=== PATIENT | male | born 1940 | race Caucasian/White ===

== ENCOUNTER 2017-04-07 08:26 | Outpatient (CLI) | payer OTHER ==
[~2017-04-07 08:26] MED LIST: AVALIDE 300-251 TAB; AVANDAMET 4 MG/1 TAB PO; CADUET 10 MG/101 TAB PO; CRESTOR20 MG; GLIPIZIDE10 MG PO; HUMALOG MIX 50/53 ML; METOPROLOL SUCC25 MG; NORVASC5 MG; PLAVIX75 MG; PRANDIN PO; ZESTRIL20 MG
== END 2017-04-07 08:31 | disposition home or self-care (01) ==
LOC: LAB 08:26
DX: N40.0 Benign prostatic hyperplasia without lower urinary tract symptoms (principal); R97.20 Elevated prostate specific antigen [PSA]; R31.9 Hematuria, unspecified; E11.9 Type 2 diabetes mellitus without complications

== ENCOUNTER 2017-04-26 12:01 | Outpatient (CLI) | payer OTHER | END 2017-04-26 15:14 | disposition home or self-care (01) | LOC: SONOGRAMA 12:01 → MAMO-SONO 12:45 → SONOGRAMA 15:14 | DX: N40.0 Benign prostatic hyperplasia without lower urinary tract symptoms (principal); R97.20 Elevated prostate specific antigen [PSA]; R31.9 Hematuria, unspecified ==

== ENCOUNTER 2017-05-11 09:41 | Outpatient (CLI) | payer OTHER | END 2017-05-11 09:51 | disposition home or self-care (01) | LOC: LAB 09:41 | DX: N40.0 Benign prostatic hyperplasia without lower urinary tract symptoms (principal); R31.9 Hematuria, unspecified; R97.20 Elevated prostate specific antigen [PSA]; E11.9 Type 2 diabetes mellitus without complications ==

== ENCOUNTER 2017-05-27 08:25 | Outpatient (CLI) | payer OTHER | END 2017-05-27 08:33 | disposition home or self-care (01) | LOC: LAB 08:25 | DX: E11.9 Type 2 diabetes mellitus without complications (principal) ==

== ENCOUNTER 2017-06-01 09:24 | Outpatient (CLI) | payer OTHER | END 2017-06-01 09:39 | disposition home or self-care (01) | LOC: LAB 09:24 | DX: E78.2 Mixed hyperlipidemia (principal); E11.9 Type 2 diabetes mellitus without complications; D84.8 Other specified immunodeficiencies ==

== ENCOUNTER 2017-07-21 08:26 | Outpatient (CLI) | payer OTHER | END 2017-07-21 08:29 | disposition home or self-care (01) | LOC: LAB 08:26 | DX: E11.9 Type 2 diabetes mellitus without complications (principal) ==

== ENCOUNTER 2017-09-06 08:16 | Outpatient (CLI) | payer OTHER | END 2017-09-06 08:20 | disposition home or self-care (01) | LOC: LAB 08:16 | DX: E11.39 Type 2 diabetes mellitus with other diabetic ophthalmic complication (principal); D68.8 Other specified coagulation defects; E03.8 Other specified hypothyroidism; E11.21 Type 2 diabetes mellitus with diabetic nephropathy ==

== ENCOUNTER 2017-09-12 12:02 | Outpatient (CLI) | payer OTHER | END 2017-09-12 12:12 | disposition home or self-care (01) | LOC: SONOGRAMA 12:02 | DX: N13.30 Unspecified hydronephrosis (principal); E03.8 Other specified hypothyroidism; E04.1 Nontoxic single thyroid nodule ==

== ENCOUNTER 2017-10-12 08:07 | Outpatient (CLI) | payer OTHER | END 2017-10-12 08:20 | disposition home or self-care (01) | LOC: LAB 08:07 | DX: E11.65 Type 2 diabetes mellitus with hyperglycemia (principal); E11.21 Type 2 diabetes mellitus with diabetic nephropathy; E78.2 Mixed hyperlipidemia; E03.8 Other specified hypothyroidism; D68.8 Other specified coagulation defects ==

== ENCOUNTER 2017-10-13 08:24 | Outpatient (CLI) | payer OTHER | END 2017-10-13 08:30 | disposition home or self-care (01) | LOC: LAB 08:24 | DX: E11.65 Type 2 diabetes mellitus with hyperglycemia (principal); E11.21 Type 2 diabetes mellitus with diabetic nephropathy; E78.2 Mixed hyperlipidemia; E03.8 Other specified hypothyroidism ==

== ENCOUNTER 2017-12-15 08:23 | Outpatient (CLI) | payer OTHER | END 2017-12-15 08:38 | disposition home or self-care (01) | LOC: LAB 08:23 | DX: E11.21 Type 2 diabetes mellitus with diabetic nephropathy (principal); D68.8 Other specified coagulation defects ==

== ENCOUNTER 2018-02-06 08:31 | Outpatient (CLI) | payer OTHER | END 2018-02-06 09:03 | disposition home or self-care (01) | LOC: LAB 08:31 | DX: E11.65 Type 2 diabetes mellitus with hyperglycemia (principal); N39.0 Urinary tract infection, site not specified; D64.89 Other specified anemias; E11.21 Type 2 diabetes mellitus with diabetic nephropathy; E78.2 Mixed hyperlipidemia; K76.89 Other specified diseases of liver ==

== ENCOUNTER 2018-07-03 07:51 | Outpatient (CLI) | payer OTHER | END 2018-07-03 16:43 | disposition home or self-care (01) | LOC: LAB 07:51 | DX: N40.0 Benign prostatic hyperplasia without lower urinary tract symptoms (principal); R97.20 Elevated prostate specific antigen [PSA]; N30.00 Acute cystitis without hematuria ==

== ENCOUNTER 2018-07-09 07:24 | Outpatient (CLI) | payer OTHER | END 2018-07-09 07:31 | disposition home or self-care (01) | LOC: SONOGRAMA 07:24 → MAMO-SONO 07:45 | DX: N40.0 Benign prostatic hyperplasia without lower urinary tract symptoms (principal); R97.20 Elevated prostate specific antigen [PSA] ==

== ENCOUNTER 2018-07-17 07:56 | Outpatient (CLI) | payer OTHER | END 2018-07-17 08:00 | disposition home or self-care (01) | LOC: LAB 07:56 | DX: E11.65 Type 2 diabetes mellitus with hyperglycemia (principal); E78.00 Pure hypercholesterolemia, unspecified ==

== ENCOUNTER 2018-08-07 07:22 | Outpatient (CLI) | payer OTHER | END 2018-08-07 07:31 | disposition home or self-care (01) | LOC: LAB 07:22 | DX: E11.69 Type 2 diabetes mellitus with other specified complication (principal); E11.21 Type 2 diabetes mellitus with diabetic nephropathy; E03.8 Other specified hypothyroidism; E78.2 Mixed hyperlipidemia; E11.65 Type 2 diabetes mellitus with hyperglycemia ==

== ENCOUNTER 2018-08-07 14:31 | Inpatient (IN) | payer OTHER ==
[~2018-08-07] VITALS: Ht 162.6 cm; Wt 77.1 kg
[2018-08-09] MEDS ORDERED: REPAGLINIDE2 MG (13:09)
== END 2018-08-14 15:54 | disposition home or self-care (01) | DRG 683 ==
LOC: ER 14:31 → MEDJ 22:58 → SEC-K 22:58 → MEDJ 23:43
PROVIDERS: ADMIT Specialist
PROC: BW21ZZZ Computerized Tomography (CT Scan) of Abdomen and Pelvis (ICD-10-PCS; principal; 2018-08-07)
DX: N17.8 Other acute kidney failure (principal); I12.0 Hypertensive chronic kidney disease with stage 5 chronic kidney disease or end stage renal disease; E11.65 Type 2 diabetes mellitus with hyperglycemia; E11.21 Type 2 diabetes mellitus with diabetic nephropathy; N18.5 Chronic kidney disease, stage 5; N40.1 Benign prostatic hyperplasia with lower urinary tract symptoms; E78.49 Other hyperlipidemia; K21.9 Gastro-esophageal reflux disease without esophagitis; K59.09 Other constipation; Z79.4 Long term (current) use of insulin; Z87.442 Personal history of urinary calculi; Z86.73 Personal history of transient ischemic attack (TIA), and cerebral infarction without residual deficits

== ENCOUNTER 2018-08-21 07:32 | Outpatient (CLI) | payer OTHER ==
[~2018-08-21 07:32] MED LIST changes: +REPAGLINIDE2 MG
== END 2018-08-21 16:38 | disposition home or self-care (01) ==
LOC: LAB 07:32
DX: D64.89 Other specified anemias (principal); N39.0 Urinary tract infection, site not specified; E11.65 Type 2 diabetes mellitus with hyperglycemia

== ENCOUNTER → 2018-10-03 07:16 | Outpatient (CLI) | payer OTHER | END | disposition home or self-care (01) | LOC: LAB 07:16 → MAMO-SONO 09:15 | DX: N40.0 Benign prostatic hyperplasia without lower urinary tract symptoms (principal); R97.20 Elevated prostate specific antigen [PSA] ==

== ENCOUNTER 2018-10-03 08:17 | Outpatient (CLI) | payer OTHER | END 2018-10-03 08:25 | disposition home or self-care (01) | LOC: SONOGRAMA 08:17 | DX: N40.0 Benign prostatic hyperplasia without lower urinary tract symptoms (principal); R97.20 Elevated prostate specific antigen [PSA]; R31.1 Benign essential microscopic hematuria ==

== ENCOUNTER 2018-12-05 19:50 | Inpatient (IN) | payer OTHER ==
[~2018-12-05] VITALS: Ht 162.6 cm; Wt 75.7 kg
[2018-12-05] MEDS ORDERED: TOPROL XL100 M1 PO (20:27)
[2018-12-05] MEDS ORDERED: ATACAND4 MG PO (20:29)
[2018-12-05] MEDS ORDERED: TAMS0.4C PO (20:29)
[2018-12-05] MEDS ORDERED: TRULICITY0.75 MG/0. SUBCUTANEO (20:30)
[2018-12-05] MEDS ORDERED: PROSCAR5 MG PO (20:30)
[2018-12-05] MEDS ORDERED: LANTUS SOL100 UNIT/1 SUBCUTANEO (20:30)
--- NOTE | 2018-12-05 20:52 | NUR ---
PACIENTE ALERTA Y ORIENTADO X3, CON BUEN PATRON RESPIRATORIO Y SIGNOS VITALES ESTABLES, PRESENTA BP EN 116/48 MANUAL SE LE CAMBIARON MEDICAMENTOS DE LA PRESION EL LUNES, ESPOSA REFIERE QUE DANG TENIDO BAJA PRESION, LO DANG VISUALIZADO LENTO Y DEBIL. SE COLOCA EN CELIA HASTA SER EVALUADO POR .
--- NOTE | 2018-12-05 21:16 | NUR ---
PTE ALERTA Y ORIENTADO X3, SE LE TAWANA MUESTRAS DE LAB.NRIAJ ORDEN MEDICA BAJO MEDIDAS ASEPTICAS. SE CANALIZA AREA RADHA DE EDEMA Y DE ENROJECIMIENTO. SE LE COLOCA DRIP .9NSS BAJANDO A 100ML/HR. SE EDUCA A PTE/FAMILIAR SOBRE TRATAMIENTO MEDICO.
--- NOTE | 2018-12-05 22:49 | NUR ---
SE RECIBE PTE ALERTA Y ORIENTADO X3 EN UNIDAD DE CRITICO. PTE SE COLOCA EN CELIA #1. PTE SE CONECTA A MONITOR CARDIACO CON OXIMETRIA DE PULSO. PTE SE OBSERVA CON 0.45 BAJANDO A 125ML/HR. SE COLOCA ROCEPHIN 2G APTE EL CUAL TOLERA. SE COLOCA GIBSON BAJANDO A GRAVEDAD A PTE. SE TAWANA MUESTRAS DE LAB UTILIZANDO MEDIDAS ASEPTICAS. SE CULTIVA EN NANCY Y ORINA A PTE. SE NOTIFICA ESTUDIO DE PALCA PORTABLE PENDIENTE A REALIZAR. PTE EN ESPERA DE CONSULTA CON MEDICINA INTERNA. PTE SE CONTINUA MONITORIANDO POR CAMBIOS.
--- NOTE | 2018-12-05 23:24 | NUR ---
SE RECIBE PACIENTE EN LA UNIDAD DE CRITICO ALERTA Y ORIENTADO X3 EN CAMA CON BARANDAS ELEVADAS Y CABEZERA A 30 GRADOS, CONECTADO A MONITOR CARDIACO CON OXIMETRIA DE PULSO. AREA DE CALIZACION PATENTE Y RADHA DE EDEMA O ERITEMA EN BRAZO Y MANO DERECHA BAJANDO 0.45NSS 1000ML A 125ML/HR. TIENE GIBSON A GRAVEDAD DRENANDO ORINA DE COLOR AMARILLO CALRO. NO EDEMA EN EXTREMIDADES, NO DOLOR, DISPNEA. EL PACIENTE NIEGA DOLOR U OTROS SINTOMAS. SE MANTIENE BAJO OBSERVACION POR CAMBIOS.
[2018-12-06] MEDS ORDERED: TRULICITY1.5 MG/0.5 (07:17)
[2018-12-06] MEDS ORDERED: CRESTOR40 MG (07:17)
[2018-12-06] MEDS ORDERED: VITAMINA B12 (07:20)
--- NOTE | 2018-12-06 08:09 | NUR ---
SE RECIBE PACIENTE ALERTA Y ORIENTADO EN CAMAM CON BARANDAS ELEVADAS CONECTADO A MONITOR CARDIACO, SE OBSERVA CON IBF PATENTE RADHA D EDEMA , GIBSON CATHETER CON ORINA AMARILLO SHARATH CON SEDIMENTACION , SE MANTIENENEN OBSERVACION PO RCAMBIOS EN CAICEDO CONDICON. EN CONSULTA CON EL .
[2018-12-06] MEDS ORDERED: VITAMIN B-121000 MCG (16:21)
== END 2018-12-21 18:40 | disposition home or self-care (01) | DRG 682 ==
LOC: ER 19:50 → MEDJ 12-06 10:06 → ICU-2 12-06 10:06 → MEDJ 12-07 19:30
PROVIDERS: ADMIT Specialist
PROC: 4A12X4Z Monitoring of Cardiac Electrical Activity, External Approach (ICD-10-PCS; principal; 2018-12-07)
PROC: B246ZZZ Ultrasonography of Right and Left Heart (ICD-10-PCS; 2018-12-07)
PROC: BT43ZZZ Ultrasonography of Bilateral Kidneys (ICD-10-PCS; 2018-12-08)
PROC: 5A1D70Z Performance of Urinary Filtration, Intermittent, Less than 6 Hours Per Day (ICD-10-PCS; 2018-12-09)
PROC: 06HM33Z Insertion of Infusion Device into Right Femoral Vein, Percutaneous Approach (ICD-10-PCS; 2018-12-10)
PROC: 5A1D70Z Performance of Urinary Filtration, Intermittent, Less than 6 Hours Per Day (ICD-10-PCS; 2018-12-10)
PROC: 05HM33Z Insertion of Infusion Device into Right Internal Jugular Vein, Percutaneous Approach (ICD-10-PCS; 2018-12-13)
PROC: 5A1D70Z Performance of Urinary Filtration, Intermittent, Less than 6 Hours Per Day (ICD-10-PCS; 2018-12-14)
PROC: B54PZZZ Ultrasonography of Bilateral Upper Extremity Veins (ICD-10-PCS; 2018-12-17)
PROC: 05HB33Z Insertion of Infusion Device into Right Basilic Vein, Percutaneous Approach (ICD-10-PCS; 2018-12-18)
PROC: B51MZZA Fluoroscopy of Right Upper Extremity Veins, Guidance (ICD-10-PCS; 2018-12-18)
PROC: 30233N1 Transfusion of Nonautologous Red Blood Cells into Peripheral Vein, Percutaneous Approach (ICD-10-PCS; 2018-12-19)
PROC: 5A1D70Z Performance of Urinary Filtration, Intermittent, Less than 6 Hours Per Day (ICD-10-PCS; 2018-12-19)
PROC: 5A1D70Z Performance of Urinary Filtration, Intermittent, Less than 6 Hours Per Day (ICD-10-PCS; 2018-12-21)
DX: I13.11 Hypertensive heart and chronic kidney disease without heart failure, with stage 5 chronic kidney disease, or end stage renal disease (principal); R65.21 Severe sepsis with septic shock; N39.0 Urinary tract infection, site not specified; I67.89 Other cerebrovascular disease; N13.8 Other obstructive and reflux uropathy; N18.5 Chronic kidney disease, stage 5; N17.8 Other acute kidney failure; T82.49XA Other complication of vascular dialysis catheter, initial encounter; E11.22 Type 2 diabetes mellitus with diabetic chronic kidney disease; E11.21 Type 2 diabetes mellitus with diabetic nephropathy; E11.65 Type 2 diabetes mellitus with hyperglycemia; N40.1 Benign prostatic hyperplasia with lower urinary tract symptoms; I95.89 Other hypotension; Z87.442 Personal history of urinary calculi; Z51.89 Encounter for other specified aftercare; D64.89 Other specified anemias; Z99.2 Dependence on renal dialysis; E78.49 Other hyperlipidemia; B96.29 Other Escherichia coli [E. coli] as the cause of diseases classified elsewhere

== ENCOUNTER → 2019-01-14 08:30 | Outpatient (CLI) | payer OTHER ==
[~2019-01-14 08:30] MED LIST changes: +ATACAND4 MG PO; +CRESTOR40 MG; +LANTUS SOL100 UNIT/1 SUBCUTANEO; +PROSCAR5 MG PO; +TAMS0.4C PO; +TOPROL XL100 M1 PO; +TRULICITY0.75 MG/0. SUBCUTANEO; +TRULICITY1.5 MG/0.5; +VITAMIN B-121000 MCG; +VITAMINA B12
== END | disposition home or self-care (01) ==
LOC: LAB 08:30
DX: N18.6 End stage renal disease (principal)

== ENCOUNTER 2019-01-23 09:54 | Outpatient (CLI) | payer OTHER | END 2019-01-23 09:56 | disposition home or self-care (01) | LOC: RAD 09:54 | DX: J45.998 Other asthma (principal) ==

== ENCOUNTER 2019-01-28 08:33 | Outpatient (CLI) | payer OTHER | END 2019-01-28 08:38 | disposition home or self-care (01) | LOC: LAB 08:33 | DX: I10 Essential (primary) hypertension (principal) ==

== ENCOUNTER → 2019-02-05 08:18 | Outpatient (CLI) | payer OTHER | END | disposition home or self-care (01) | LOC: LAB 08:18 | DX: E87.5 Hyperkalemia (principal); I10 Essential (primary) hypertension ==

== ENCOUNTER → 2019-02-25 07:50 | Outpatient (CLI) | payer OTHER | END | disposition home or self-care (01) | LOC: LAB 07:50 | DX: N18.3 Chronic kidney disease, stage 3 (moderate) (principal); R80.8 Other proteinuria; E11.21 Type 2 diabetes mellitus with diabetic nephropathy ==

== ENCOUNTER 2019-04-08 07:46 | Outpatient (CLI) | payer OTHER | END 2019-04-08 07:50 | disposition home or self-care (01) | LOC: LAB 07:46 | DX: E11.65 Type 2 diabetes mellitus with hyperglycemia (principal); E11.21 Type 2 diabetes mellitus with diabetic nephropathy; E03.8 Other specified hypothyroidism; D64.89 Other specified anemias ==

== ENCOUNTER 2019-05-08 07:53 | Outpatient (CLI) | payer OTHER | END 2019-05-08 08:03 | disposition home or self-care (01) | LOC: LAB 07:53 | DX: I10 Essential (primary) hypertension (principal); E11.21 Type 2 diabetes mellitus with diabetic nephropathy; R80.8 Other proteinuria ==

== ENCOUNTER 2019-05-24 08:12 | Outpatient (CLI) | payer OTHER | END 2019-05-24 08:17 | disposition home or self-care (01) | LOC: LAB 08:12 | DX: E11.65 Type 2 diabetes mellitus with hyperglycemia (principal) ==

== ENCOUNTER 2020-05-21 09:51 | Outpatient (CLI) | payer OTHER | END 2020-05-21 09:56 | disposition home or self-care (01) | LOC: RAD 09:51 | PROVIDERS: ATTEND Specialist | DX: J45.998 Other asthma (principal) ==

== ENCOUNTER → 2020-07-31 | Outpatient (CLI) | payer OTHER | END | disposition home or self-care (01) | LOC: NUCLEAR 07:00 | PROVIDERS: ATTEND Internal Medicine Cardiovascular Disease | DX: I50.1 Left ventricular failure, unspecified (principal) | CPT/HCPCS: 78452; 93017; A9500; J0153 ==

== ENCOUNTER 2021-04-07 10:39 | Outpatient (CLI) | payer OTHER | END 2021-04-07 10:45 | disposition home or self-care (01) | LOC: RAD 10:39 | PROVIDERS: ATTEND Specialist | DX: J45.998 Other asthma (principal) ==

== ENCOUNTER 2022-07-07 11:23 | Outpatient (CLI) | payer OTHER | END 2022-07-07 11:29 | disposition home or self-care (01) | LOC: RAD 11:23 | PROVIDERS: ATTEND Specialist | DX: I70.0 Atherosclerosis of aorta (principal) ==

== ENCOUNTER 2023-01-11 08:40 | Outpatient (CLI) | payer OTHER | END 2023-01-11 08:57 | disposition home or self-care (01) | LOC: SONOGRAMA 08:40 | DX: R10.9 Unspecified abdominal pain (principal); N18.32 Chronic kidney disease, stage 3b ==

== ENCOUNTER 2023-05-05 10:19 | Outpatient (CLI) | payer OTHER | END 2023-05-05 10:25 | disposition home or self-care (01) | LOC: SONOGRAMA 10:19 | PROVIDERS: ATTEND Specialist | DX: N40.0 Benign prostatic hyperplasia without lower urinary tract symptoms (principal); J45.991 Cough variant asthma; R97.20 Elevated prostate specific antigen [PSA]; R31.1 Benign essential microscopic hematuria; R33.0 Drug induced retention of urine ==

== ENCOUNTER 2024-05-08 08:00 | Outpatient (CLI) | payer OTHER | END 2024-05-08 08:05 | disposition home or self-care (01) | LOC: SONOGRAMA 08:00 | PROVIDERS: ATTEND Specialist | DX: N40.0 Benign prostatic hyperplasia without lower urinary tract symptoms (principal); R97.20 Elevated prostate specific antigen [PSA]; N40.1 Benign prostatic hyperplasia with lower urinary tract symptoms; R33.9 Retention of urine, unspecified; K75.81 Nonalcoholic steatohepatitis (NASH); J45.998 Other asthma ==

== ENCOUNTER 2024-07-26 15:38 | Inpatient (IN) | payer OTHER ==
[~2024-07-26] VITALS: Ht 160 cm; Wt 83.5 kg
[2024-07-26] MEDS ORDERED: 0.9 % SODIUM CHLORIDE 250 ML IV SCH (17:30)
[2024-07-26 19:04] LABS: URINE APPEARANCE Cloudy; URINE BILIRRUBIN Negative (NEGATIVE); URINE BLOOD Small; URINE COLOR Yellow; URINE KETONE Trace (NEGATIVE); URINE LEUKOCYTE Moderate; URINE NITRATE Negative; URINE PROTEIN 30 (NEGATIVE)
[2024-07-26 19:05] LABS: URINE BACTERIA 1398.7 uL (0.0-1933); URINE EPITHELIAL CELLS 2.6 uL (0.0-38.8); URINE RBC 12.9 uL (0.0-20.8); URINE WBC 1372.3 uL (0.0-23.2)
[2024-07-26 19:17] LABS: URINE CAST 0.14 uL (0.0-1.40); URINE GLUCOSE >=1000 MG/DL (NEGATIVE)
[2024-07-26 19:17] LABS: HEMATOCRIT 38.9 % (39.0-48.0); HEMOGLOBIN 13.6 g/dL (13-16.00); MEAN CELL VOLUME 91.5 fL (80.0-100.00); MEAN CORPUSCULAR HEMOGLOBIN 31.9 pg (27.00-32.0); MEAN CORPUSCULAR HGB CONC 34.9 g/dl (32.0-36.0); PLATELET COUNT 221 K/uL (150-450); RED BLOOD COUNT 4.25 M/uL (4.00-6.00)
[2024-07-26 19:27] LABS: INFLUENZA A AG NEGATIVE (NEGATIVE)
[2024-07-26 19:29] LABS: COVID-19 AG NEGATIVE (NEGATIVE)
[2024-07-26 19:32] LABS: ALBUMIN 3.5 gm/dL (3.4-5.0); BILIRUBIN TOTAL 0.91 mg/dL (0.3-1.2); CALCIUM 8.8 mg/dL (8.5-10.1); GFR 27.78; GLOBULINA 3.9 G/DL (2.4-3.5); POTASSIUM 4.22 mEq/L (3.5-5.1); TOTAL PROTEIN 7.4 gm/dL (6.4-8.2)
[2024-07-26 19:36] LABS: CREATININE SERUM 2.27 mg/dL (0.70-1.30)
[2024-07-26] MEDS ORDERED: INSULIN REGULAR, HUMAN 1,000 UNIT/10 ML UNITS IV ONE (20:45)
[2024-07-26] MEDS ORDERED: CEFTRIAXONE SODIUM 2,000 MG VIAL IV ONE (22:00)
[2024-07-26] MEDS ORDERED: TAMSULOSIN HCL 0.4 MG CAP PO SCH (22:11)
[2024-07-26] MEDS ORDERED: hydrALAZINE HCL 10 MG TABLET PO SCH (22:12)
[2024-07-26] MEDS ORDERED: DEXTROSE 50 % IN WATER 0.5 G/ML DISP.SYRIN IV PRN (22:15)
[2024-07-26] MEDS ORDERED: INSULIN LISPRO 1,000 UNIT/10 ML UNITS SUBCUTANEO PRN (22:15)
[2024-07-26] MEDS ORDERED: 0.9 % SODIUM CHLORIDE 1,000 ML IV SCH (22:15)
[2024-07-26] MEDS ORDERED: ACETAMINOPHEN 500 MG GEL..CAP PO PRN (22:15)
[2024-07-27] MEDS ORDERED: LEVOTHYROXINE SODIUM 25 MCG TABLET PO SCH (06:00)
[2024-07-27] MEDS ORDERED: ROSUVASTATIN CALCIUM 20 MG TABLET PO SCH (09:00)
[2024-07-27] MEDS ORDERED: FINASTERIDE 5 MG TABLET PO SCH (09:00)
[2024-07-27] MEDS ORDERED: LOSARTAN POTASSIUM 50 MG TABLET PO SCH (09:00)
[2024-07-27] MEDS ORDERED: CEFTRIAXONE SODIUM 2,000 MG in 0.9 % SODIUM CHLORIDE 100 ML IV SCH (09:00)
[2024-07-27] MEDS ORDERED: INSULIN LISPRO 1,000 UNIT/10 ML UNITS SUBCUTANEO ONE ×2 (11:23→17:10)
[2024-07-27 16:34] VITALS: BP 120/64; O2SAT 96
[2024-07-27 20:30] VITALS: BP 150/70
[2024-07-27] MEDS ORDERED: INSULIN GLARGINE,HUM.REC.ANLOG 1,000 UNITS/10 ML UNITS SUBCUTANEO STA (22:06)
[2024-07-27 23:47] LABS: INR 1.14; PARTIAL THROMBOPLASTIN TIME 29.2 SECONDS (22.0-34.0); PROTHROMBIN TIME 12.3 SECONDS (9.0-11.5)
[2024-07-28 02:32] VITALS: BP 164/81; O2SAT 96
[2024-07-28] MEDS ORDERED: INSULIN LISPRO 1,000 UNIT/10 ML UNITS SUBCUTANEO SCH (08:00)
[2024-07-28 08:04] LABS: ALBUMIN 3.3 gm/dL (3.4-5.0); BILIRUBIN TOTAL 0.49 mg/dL (0.3-1.2); CALCIUM 8.1 mg/dL (8.5-10.1); CREATININE SERUM 1.95 mg/dL (0.70-1.30); GFR 33.1; GLOBULINA 3.5 G/DL (2.4-3.5); POTASSIUM 4.22 mEq/L (3.5-5.1); TOTAL PROTEIN 6.8 gm/dL (6.4-8.2)
[2024-07-28] MEDS ORDERED: CEFTRIAXONE SODIUM 2,000 MG VIAL ONE (08:07)
[2024-07-28 08:21] LABS: HEMATOCRIT 40.5 % (39.0-48.0); HEMOGLOBIN 13.9 g/dL (13-16.00); MEAN CELL VOLUME 92.8 fL (80.0-100.00); MEAN CORPUSCULAR HEMOGLOBIN 31.8 pg (27.00-32.0); MEAN CORPUSCULAR HGB CONC 34.3 g/dl (32.0-36.0); PLATELET COUNT 220 K/uL (150-450); RED BLOOD COUNT 4.36 M/uL (4.00-6.00); RED CELL DISTRIBUTION WIDTH 13.1 % (11.5-14.5)
[2024-07-28 09:23] VITALS: BP 155/75; O2SAT 99
[2024-07-28] MEDS ORDERED: LACTOBACILLUS ACIDOPHILUS 1 CAP CAP PO SCH (17:00)
[2024-07-28 18:01] VITALS: BP 154/67; O2SAT 99
[2024-07-28] MEDS ORDERED: ENOXAPARIN SODIUM 30 MG/0.3 ML SYRINGE SUBCUTANEO STA (18:28)
[2024-07-28] MEDS ORDERED: INSULIN GLARGINE,HUM.REC.ANLOG 1,000 UNITS/10 ML UNITS SUBCUTANEO SCH (21:00)
[2024-07-29 01:57] VITALS: BP 152/66; O2SAT 97
[2024-07-29 07:22] LABS: CALCIUM 7.4 mg/dL (8.5-10.1); CREATININE SERUM 1.81 mg/dL (0.70-1.30); GFR 36.07; MAGNESIUM 1.9 mg/dL (1.8-2.4); PHOSPHOROUS 2.6 mg/dL (2.5-4.9); POTASSIUM 4.24 mEq/L (3.5-5.1)
[2024-07-29 11:37] VITALS: BP 135/69; O2SAT 95
[2024-07-29] MEDS ORDERED: LEVOTHYROXINE25 MCG PO (14:15)
[2024-07-29] MEDS ORDERED: TAMS0.4C PO (14:15)
[2024-07-29] MEDS ORDERED: AMOX-CLAV 500-1 EACH PO (14:15)
[2024-07-29] MEDS ORDERED: HYDRALAZINE HCL10 MG PO (14:15)
[2024-07-29] MEDS ORDERED: LANTUS SOL100 UNIT/1 SUBCUTANEO (14:15)
[2024-07-29] MEDS ORDERED: COZAAR50 MG PO (14:15)
[2024-07-29] MEDS ORDERED: CRESTOR40 MG PO (14:15)
[2024-07-29] MEDS ORDERED: PROSCAR5 MG PO (14:15)
[2024-07-29] MEDS ORDERED: INTESTINEX680 M1 PO (14:15)
[2024-07-29] MEDS ORDERED: ENOXAPARIN SODIUM 30 MG/0.3 ML SYRINGE SUBCUTANEO SCH (17:00)
[2024-07-30 09:12] LABS: % FREE PSA 12.5 % (.); free psa 0.75 ng/mL
== END 2024-07-29 14:24 | disposition home or self-care (01) | DRG 683 ==
LOC: ER 15:38 → MEDI 22:21 → SEC-K 22:21 → MEDI 07-27 17:59
PROVIDERS: Emergency Medicine; General Practice; Internal Medicine Geriatric Medicine; Internal Medicine Nephrology; ADMIT Specialist; ATTEND Specialist
PROC: BT43ZZZ Ultrasonography of Bilateral Kidneys (ICD-10-PCS; principal; 2024-07-26)
DX: N17.9 Acute kidney failure, unspecified (principal); N39.0 Urinary tract infection, site not specified; I12.9 Hypertensive chronic kidney disease with stage 1 through stage 4 chronic kidney disease, or unspecified chronic kidney disease; E11.22 Type 2 diabetes mellitus with diabetic chronic kidney disease; N18.9 Chronic kidney disease, unspecified; Z79.4 Long term (current) use of insulin; N40.1 Benign prostatic hyperplasia with lower urinary tract symptoms